=== PATIENT | male | born 1995 | race Caucasian/White ===

== ENCOUNTER 2017-06-20 19:51 | Emergency (ER) | payer BC ==
[2017-06-20 20:03] VITALS: BP 130/78
== END 2017-06-20 20:44 | disposition left against medical advice (07) ==
LOC: ED 19:51
DX: H92.09 Otalgia, unspecified ear (principal); Z53.21 Procedure and treatment not carried out due to patient leaving prior to being seen by health care provider

== ENCOUNTER 2017-06-21 00:17 | Emergency (ER) | payer BC ==
[2017-06-21] MEDS ORDERED: Amoxicillin/Clavulanate TAB* 875 MG PO ONE (00:45)
[2017-06-21] MEDS ORDERED: Ibuprofen TAB* 600 MG PO ONE (00:46)
--- NOTE | 2017-06-21 01:23 | ED ---
Cholo Medrano Rebecca, scribed for Yasir Kidd on 06/21/17 at 0053 . Throat Pain/Nasal Congestion - HPI Summary HPI Summary: Pt is a 22 y/o M BIBA who presents to ED c/o R ear pain for 1.5 days. Pain is currently moderate, ranked 4/10 and characterized as pressure. 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 He then had a brief episode of LOC that lasted for a few seconds which he attributes to have likely been caused by the pain. Sx aggravated by eating pizza, alleviated by nothing. Pt reports he currently feels well. - History of Current Complaint Chief Complaint: EDEarPain Time Seen by Provider: 06/21/17 00:30 Hx Obtained From: Patient Onset/Duration: Lasting Days - 1.5 days, Still Present Severity: Moderate - 4/10 - Allergies/Home Medications Allergies/Adverse Reactions: Allergies Allergy/AdvReac Type Severity Reaction Status Date / Time No Known Allergies Allergy Verified 06/20/17 19:59 PMH/Surg Hx/FS Hx/Imm Hx Cardiovascular History: Denies: Hx Coronary Artery Disease Respiratory History: Reports: Hx Asthma Infectious Disease History: No Infectious Disease History: Denies: Traveled Outside the [place] in Last 30 Days - Family History Known Family History: Positive: Cardiac Disease, Hypertension - Social History Alcohol Use: Occasionally Substance Use Type: Reports: None Smoking Status (MU): Never Smoked Tobacco Review of Systems Positive: Ear Ache - R ear pain Positive: Syncope - Positive LOC for a few seconds 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 All Other Systems Reviewed And Are Negative: Yes Physical Exam - Summary Physical Exam Summary: Appearance: Well appearing, no pain distress Skin: warm, dry, reflects adequate perfusion Head/face: normal Eyes: EOMI, DEE ENT: R TM is dull and erythematous with erythema over the external ear canal Neck: supple, nontender Respiratory: CTA, breath sounds present Cardiovascular: RRR, pulses symmetrical Abdomen: nontender, soft Bowel: present Musculoskeletal: normal, strength/ROM intact Neuro: normal, sensory motor intact, A&Ox3 Triage Information Reviewed: Yes Vital Signs On Initial Exam: Initial Vitals Temp Pulse Resp BP Pulse Ox 98.0 F 79 18 121/74 100 06/21/17 00:39 06/21/17 00:39 06/21/17 00:39 06/21/17 00:39 06/21/17 00:39 Vital Signs Reviewed: Yes - [place] Coma Scale Coma Scale Total: 15 Diagnostics - Vital Signs Vital Signs Temp Pulse Resp BP Pulse Ox 06/21/17 00:42 98.0 F 79 18 121/74 100 06/21/17 00:39 98.0 F 79 18 121/74 100 - Laboratory Lab Statement: Any lab studies that have been ordered have been reviewed, and results considered in the medical decision making process. - EKG 0054 Cardiac Rate: NL - 69 bpm EKG Rhythm: Sinus Rhythm EKG Interpretation: No acute changes EENT Course/Dx - Course Assessment/Plan: Pt is a 22 y/o M BIBA who presents to ED c/o R ear pain for 1.5 days. Pain is currently moderate, ranked 4/10 and characterized as pressure. 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 He then had a brief episode of LOC that lasted for a few seconds which he attributes to have likely been caused by the pain. Sx aggravated by eating pizza, alleviated by nothing. Pt reports he currently feels well. EKG reveals sinus rhythm with no acute changes. He will be D/C to home with Dx of right otitis media, Rx for augmentin and motrin and a follow up with his PCP. He understands and agrees. Elevated BP noted and advised to f/u with PCP. - Diagnoses Provider Diagnoses: Right otitis media Discharge - Discharge Plan Condition: Stable Disposition: HOME Prescriptions: Amoxicillin/Clavulanate TAB* [Augmentin TAB 875*] 875 mg PO BID #20 tab Ibuprofen TAB* [Motrin TAB* 600 MG] 600 mg PO Q8H PRN #20 tab MDD 3 PRN Reason: Pain Patient Education Materials: Otitis Media (ED) Referrals: [facility] [facility] [Outside] - 3 Days The documentation as recorded by the Cholo macias Rebecca accurately reflects the service I personally performed and the decisions made by , Yasir Kidd.
[2017-06-21 01:27] VITALS: BP 118/71
== END 2017-06-21 01:32 | disposition home or self-care (01) ==
LOC: ED 00:17
DX: H66.91 Otitis media, unspecified, right ear (principal)
CPT/HCPCS: 93005; 99282; A9270-GY